=== PATIENT | female | born 1940 | race Caucasian/White ===

== ENCOUNTER 2016-08-16 18:15 | Emergency (ER) | payer MEDICARE, BC ==
[2016-08-16 18:24] VITALS: BP 200/86
[2016-08-16] MEDS ORDERED: Sodium Chloride 0.9% 10 ML Syringe FLUSH PRN ×2 (18:36→19:16)
--- NOTE | 2016-08-16 18:47 | EDM.PDOC ---
ED HPI GENERAL MEDICAL PROBLEM - General Chief Complaint: ENT Problem Stated Complaint: Lump in throat Time Seen by Provider: 08/16/16 18:30 Source of Information: Reports: Patient, RN Notes Reviewed History Limitations: Reports: No Limitations - History of Present Illness INITIAL COMMENTS - FREE TEXT/NARRATIVE: 75 year old female presents to the ED today with complaints of a lump in her throat and pain with swallowing. The symptoms came on suddenly around 430 this evening. This is a new problem for her. No previous history. She was not eating or drinking when the symptoms started. She has not eaten since symptom onset. She reports a 3 day history of mild sore throat. No fever, chills, cough, runny nose. She has a history of seasonal allergies. No allergic reaction symptoms including facial swelling, shortness of breath, rash, itching. She denies wheezing or stridor. She has a history of hypothyroidism but denies goiter or nodules that she's aware of. Triage reports that her BP is elevated. The patient reports that her BP is always elevated when she goes to the clinic or hospital. She has taken her evening BP medication. - Related Data Allergies Allergy/AdvReac Type Severity Reaction Status Date / Time No Known Allergies Allergy Verified 08/16/16 18:24 Home Meds: Home Meds Bioflav,Lemon/Vit BComp&C [Lipo-Flavonoid Plus Caplet] 1 tab PO DAILY 09/15/15 [ History] Calcium With Vitamin D. 1 tab PO BID 09/15/15 [History] Fexofenadine [Ashley] 180 mg PO DAILY PRN 09/15/15 [History] Gabapentin [Neurontin] 100 mg PO TID 09/15/15 [History] Gemfibrozil 600 mg PO BID 09/15/15 [History] Levothyroxine [Synthroid] 100 mcg PO ACBREAKFAST 09/15/15 [History] Metoprolol Tartrate [Lopressor] 50 mg PO BID 09/15/15 [History] Nabumetone. 500 mg PO DAILY 09/15/15 [History] Omeprazole Magnesium [Prilosec Otc] 20 mg PO DAILY 09/15/15 [History] Potassium Chloride [Klor-Con 10] 10 meq PO BID 09/15/15 [History] Acetaminophen 500 mg PO Q6H PRN 08/16/16 [History] Allopurinol [Zyloprim] 200 mg PO DAILY 08/16/16 [History] Losartan [Cozaar] 100 mg PO DAILY 08/16/16 [History] Multivitamin [Multiple Vitamins] 1 tab PO DAILY 08/16/16 [History] Oxymetazoline [Afrin Original 0.05% Nasal [place]] 1 - 2 spray CHERYLE BID PRN [History] amLODIPine [Norvasc] 5 mg PO DAILY 08/16/16 [History] atorvaSTATin [Lipitor] 20 mg PO DAILY 08/16/16 [History] Past Medical History Cardiovascular History: Reports: High Cholesterol, Hypertension Endocrine/Metabolic History: Reports: Hypothyroidism - Past Surgical History GI Surgical History: Reports: Appendectomy, Cholecystectomy Female Surgical History: Reports: Hysterectomy Social & Family History - Tobacco Use Smoking Status *Q: Never Smoker Second Hand Smoke Exposure: No - Caffeine Use Caffeine Use: Reports: Coffee - Recreational Drug Use Recreational Drug Use: No ED ROS ENT - Review of Systems Review Of Systems: See Below Constitutional: Reports: No Symptoms. Denies: Fever, Chills HEENT: Reports: Throat Pain, Other (lump in throat) Respiratory: Reports: No Symptoms. Denies: Shortness of Breath, Wheezing, Cough Cardiovascular: Reports: No Symptoms GI/Abdominal: Reports: Difficulty Swallowing. Denies: Abdominal Pain, Nausea, Vomiting ED EXAM, ENT - Physical Exam Exam: See Below Exam Limited By: No Limitations General Appearance: Alert, WD/WN, No Apparent Distress, Anxious Mouth/Throat: Normal Inspection, Normal Lips, Normal Oropharynx, Throat Pain. No: Drooling, Hoarse Voice, Lip Swelling, Muffled Voice, Oral Ulcers, Peritonsillar Mass, Pharyngeal Erythema, Throat Swelling, Tongue Swelling, Tonsillar Erythema, Tonsillar Exudates, Tonsillar Swelling, Trismus, Uvular Deviation Head: Atraumatic, Normocephalic Neck: Normal Inspection, Supple, Non-Tender, Full Range of Motion. No: Lymphadenopathy (L), Lymphadenopathy (R), Thyromegaly Respiratory/Chest: No Respiratory Distress, Lungs Clear, Normal Breath Sounds, No Accessory Muscle Use, Chest Non-Tender. No: Wheezing, Stridor Cardiovascular: Regular Rate, Rhythm, No Murmur GI/Abdominal: Normal Bowel Sounds, Soft, Non-Tender Neurological: Alert, Oriented, Normal Cognition Skin: Warm, Dry, Intact, Normal Color, No Rash Course - Vital Signs Last Recorded V/S: Last Vital Signs Temp 98.1 F 08/16/16 18:20 Pulse 82 08/16/16 18:20 Resp 18 08/16/16 18:20 BP 200/86 H 08/16/16 18:20 Pulse Ox 96 08/16/16 18:20 - Orders/Labs/Meds Orders: Active Orders 24 hr Category Date Time Status Peripheral IV Care [RC] . DIRECTED Care 08/16/16 18:38 Active Soft Tissue Neck w Cont [CT] Stat Exams 08/16/16 18:36 Taken Peripheral IV Insertion Adult [OM.PC] Stat Oth 08/16/16 18:36 Ordered Labs: Laboratory Tests 08/16/16 08/16/16 Range/Units 18:46 18:46 WBC 4.99 (3.98-10.04) K/mm3 RBC 4.29 (3.98-5.22) M/mm3 Hgb 13.7 (11.2-15.7) gm/L Hct 39.4 (34.1-44.9) % MCV 91.8 (79.4-94.8) fl MCH 31.9 (25.6-32.2) pg MCHC 34.8 (32.2-35.5) g/dl RDW Std Deviation 43.0 (36.4-46.3) fL Plt Count 241 (182-369) K/mm3 MPV 9.8 (9.4-12.3) fl Neut % (Auto) 59.2 (34.0-71.1) % Lymph % (Auto) 24.0 (19.3-51.7) % [place] % (Auto) 10.4 (4.7-12.5) % Eos % (Auto) 5.4 (0.7-5.8) Baso % (Auto) 0.8 (0.1-1.2) % Neut # (Auto) 2.95 (1.56-6.13) K/mm3 Lymph # (Auto) 1.20 (1.18-3.74) K/mm3 [place] # (Auto) 0.52 H (0.24-0.36) K/mm3 Eos # (Auto) 0.27 (0.04-0.36) K/mm3 Baso # (Auto) 0.04 (0.01-0.08) K/mm3 Sodium 144 (136-145) mEq/L Potassium 4.4 (3.5-5.1) mEq/L Chloride 109 H (98-107) mEq/L Carbon Dioxide 24 (21-32) mEq/L Anion Gap 15.4 H (5-15) BUN 23 H (7-18) mg/dL Creatinine 1.1 H (0.55-1.02) mg/dL Est Cr Clr Drug Dosing 32.83 mL/min Estimated GFR (MDRD) 48 (>60) mL/min BUN/Creatinine Ratio 20.9 H (14-18) Glucose 168 H (83-115) mg/dL Calcium 9.0 (8.5-10.1) mg/dL Total Bilirubin 0.7 (0.2-1.0) mg/dL AST 21 (15-37) U/L ALT 27 (14-59) U/L Alkaline Phosphatase 70 (46-116) U/L C-Reactive Protein < 0.2 (<1.0) mg/dL Total Protein 7.5 (6.4-8.2) g/dl Albumin 4.0 (3.4-5.0) g/dl Globulin 3.5 gm/dL Albumin/Globulin Ratio 1.1 (1-2) Meds: Medications Discontinued Medications Generic Name Dose Route Start Last Admin Trade Name Freq PRN Reason Stop Dose Admin Iopamidol 100 ml 08/16/16 19:16 08/16/16 19:43 Isovue-300 (61%) IVPUSH 08/16/16 19:17 80 ml ONETIME ONE Administration Sodium Chloride 10 ml 08/16/16 18:36 08/16/16 18:46 Saline Flush FLUSH 10 ml ASDIRECTED PRN Administration Keep Vein Open Sodium Chloride 10 ml 08/16/16 19:16 08/16/16 19:45 Saline Flush FLUSH 10 ml ONETIME PRN Administration IV FLUSH - Re-Assessments/Exams Free Text/Narrative Re-Assessment/Exam: CBC and CRP are normal. CMP reveals anion gap of 15.4, BUN 23, creatinine 1.1, glucose 168. Potassium and sodium are WNL. BP improved to 160 systolic. She was instructed to monitor her BP at home and return of her BP does not normalize. She says this always happens when she presents to the clinic or hospital. She has no end organ damage symptoms by history. CT soft tissue neck is negative for acute abnormality. No cyst or solid mass. No lymphadenopathy. Patient was able to eat jello without any difficulty. She has no additional symptoms to indicate anaphylaxis. No new medications. Will discharge home. She was instructed to return with any new or worsening symptoms. She is to f/u with her PCP next week for recheck. Departure - Departure Time of Disposition: 20:41 Disposition: Home, Self-Care 01 Condition: Good Clinical Impression: Lump in throat Hypertension Qualifiers: Hypertension type: essential hypertension Qualified Code(s): I10 - Essential ( primary) hypertension - Discharge Information Instructions: Hypertension Referrals: Rg Hernandez MD [Primary Care Provider] - Forms: ED Department Discharge Additional Instructions: Soft foods Tylenol or Ibuprofen as needed for pain Return to ER with any new or worsening symptoms Followup with your primary care provider next week - My Orders Last 24 Hours: My Active Orders 08/16/16 18:36 Soft Tissue Neck w Cont [CT] Stat Peripheral IV Insertion Adult [OM.PC] Stat 08/16/16 18:38 Peripheral IV Care [RC] . DIRECTED - Assessment/Plan Last 24 Hours: My Active Orders 08/16/16 18:36 Soft Tissue Neck w Cont [CT] Stat Peripheral IV Insertion Adult [OM.PC] Stat 08/16/16 18:38 Peripheral IV Care [RC] . DIRECTED
[2016-08-16] MEDS ORDERED: Iopamidol 612 MG/ML 100 ML Bottle IVPUSH ONE (19:16)
--- NOTE | 2016-08-18 17:53 | CT ---
Soft tissue neck Technique: Multiple axial sections through the neck were obtained. Intravenous contrast was utilized. Findings: Parotid salivary glands and submandibular salivary glands are within normal limits. Visualized lung apices are clear. Small normal-appearing lymph nodes are seen. No lymphadenopathy is identified. No parapharyngeal soft tissue swelling or mass is seen. Prevertebral soft tissues are normal. Epiglottis is normal. Bone window settings were reviewed which show mild degenerative change within the cervical spine most prominent at C6-C7 with severe disc space narrowing. Several small rounded soft tissue densities are seen inferiorly within both maxillary sinuses compatible with incidental retention cysts. Impression: 1. Incidental sinus findings. 2. Mild degenerative change within the cervical spine. 3. No additional abnormality is identified on CT study of the neck. Diagnostic code #2 I agree with preliminary report issued by [employer] ([employer] preliminary report dictated on 08/16/16, 9:20 PM Central Time)
== END 2016-08-16 20:50 | disposition home or self-care (01) ==
LOC: JD.ED 18:15
DX: R22.1 Localized swelling, mass and lump, neck (principal); I10 Essential (primary) hypertension; E78.00 Pure hypercholesterolemia, unspecified; E03.9 Hypothyroidism, unspecified; Z90.49 Acquired absence of other specified parts of digestive tract; Z90.710 Acquired absence of both cervix and uterus; Z79.899 Other long term (current) drug therapy
CPT/HCPCS: 36415; 70491; 80053; 85025; 86140; 99284; J7050; Q9967

== ENCOUNTER 2016-11-06 12:20 | Emergency (ER) | payer MEDICARE, BC ==
[2016-11-06 12:37] VITALS: BP 170/87
--- NOTE | 2016-11-06 13:33 | EDM.PDOC ---
ED HPI GENERAL MEDICAL PROBLEM - General Chief Complaint: Lower Extremity Injury/Pain Stated Complaint: RIGHT KNEE INJURY Time Seen by Provider: 11/06/16 12:42 Source of Information: Reports: Patient, RN Notes Reviewed - History of Present Illness INITIAL COMMENTS - FREE TEXT/NARRATIVE: 75-year-old female comes in with right knee discomfort. She had onset of discomfort yesterday of the right knee. has involved primarily the medial aspect and also posterior aspect of the knee. For a while there was a "charley horse" sensation posterior aspect of the knee. Pain is worse with standing and walking. Does feel better to rest and lay down. She has had some arthritic problems with the knee in the past. He states she may have twisted or strained the knee, not sure about that. She did not fall. She is not having leg pain or swelling. Right Knee Pain Score (Numeric/FACES): 10 - Related Data Allergies Allergy/AdvReac Type Severity Reaction Status Date / Time No Known Allergies Allergy Verified 11/06/16 12:37 Home Meds: Home Meds Bioflav,Lemon/Vit BComp&C [Lipo-Flavonoid Plus Caplet] 1 tab PO DAILY 09/15/15 [ History] Calcium With Vitamin D. 1 tab PO BID 09/15/15 [History] Fexofenadine [Ashley] 180 mg PO DAILY PRN 09/15/15 [History] Gabapentin [Neurontin] 100 mg PO TID 09/15/15 [History] Gemfibrozil 600 mg PO BID 09/15/15 [History] Levothyroxine [Synthroid] 100 mcg PO ACBREAKFAST 09/15/15 [History] Metoprolol Tartrate [Lopressor] 50 mg PO BID 09/15/15 [History] Nabumetone. 500 mg PO DAILY 09/15/15 [History] Omeprazole Magnesium [Prilosec Otc] 20 mg PO DAILY 09/15/15 [History] Potassium Chloride [Klor-Con 10] 10 meq PO BID 09/15/15 [History] Acetaminophen 500 mg PO Q6H PRN 08/16/16 [History] Allopurinol [Zyloprim] 200 mg PO DAILY 08/16/16 [History] Losartan [Cozaar] 100 mg PO DAILY 08/16/16 [History] Multivitamin [Multiple Vitamins] 1 tab PO DAILY 08/16/16 [History] Oxymetazoline [Afrin Original 0.05% Nasal [place]] 1 - 2 spray CHERYLE BID PRN [History] amLODIPine [Norvasc] 5 mg PO DAILY 08/16/16 [History] atorvaSTATin [Lipitor] 20 mg PO DAILY 08/16/16 [History] Past Medical History HEENT History: Reports: Cataract Cardiovascular History: Reports: High Cholesterol, Hypertension Gastrointestinal History: Reports: None Genitourinary History: Reports: None Musculoskeletal History: Reports: Arthritis Endocrine/Metabolic History: Reports: Hypothyroidism, Obesity/BMI 30+ - Past Surgical History HEENT Surgical History: Reports: Cataract Surgery GI Surgical History: Reports: Appendectomy, Cholecystectomy Female Surgical History: Reports: Hysterectomy Musculoskeletal Surgical History: Reports: None Social & Family History - Family History Family Medical History: Noncontributory - Tobacco Use Smoking Status *Q: Never Smoker Second Hand Smoke Exposure: No - Caffeine Use Caffeine Use: Reports: Coffee - Recreational Drug Use Recreational Drug Use: No Review of Systems - Review of Systems Review Of Systems: See Below Eyes: Reports: No Symptoms Mouth/Throat: Reports: No Symptoms Respiratory: Denies: Shortness of Breath, Pleuritic Chest Pain Cardiovascular: Denies: Chest Pain GI/Abdominal: Denies: Abdominal Pain, Nausea, Vomiting Musculoskeletal: Reports: Joint Pain Skin: Reports: No Symptoms (Right knee) Neurological: Reports: No Symptoms ED EXAM, GENERAL - Physical Exam Exam: See Below General Appearance: Alert, No Apparent Distress Throat/Mouth: Normal Inspection, Normal Oropharynx Respiratory/Chest: No Respiratory Distress, Lungs Clear, Normal Breath Sounds Cardiovascular: Regular Rate, Rhythm Extremities: Other (There is some swelling of the right knee, no effusion at this time, there is some tenderness of the medial aspect and also very mild tenderness of the posterior aspect. No warmth or erythema she has good range of motion with minimal discomfort. Knee joint is stable). No: Pedal Edema, Leg Pain (Leg is nontender), Increased Warmth, Redness Neurological: Alert, Oriented, No Motor/Sensory Deficits Course - Vital Signs Last Recorded V/S: Last Vital Signs Temp 98.0 F 11/06/16 12:33 Pulse 71 11/06/16 12:33 Resp 16 11/06/16 12:33 BP 170/87 H 11/06/16 12:33 Pulse Ox 95 11/06/16 12:33 - Orders/Labs/Meds Orders: Active Orders 24 hr Category Date Time Status Knee Min 4V Rt [CR] Stat Exams 11/06/16 13:02 Taken - Re-Assessments/Exams Free Text/Narrative Re-Assessment/Exam: 11/06/16 14:14 X-rays of the knee do show degenerative changes, no fracture Departure - Departure Time of Disposition: 13:33 Disposition: Refer to Observation Condition: Fair Clinical Impression: Knee pain, right Qualifiers: Chronicity: unspecified Qualified Code(s): M25.561 - Pain in right knee - Discharge Information Instructions: Knee Pain Referrals: Rg Hernandez MD [Primary Care Provider] - Forms: ED Department Discharge Additional Instructions: [place] wrap right knee, rest and elevate leg and knee as much as possible, Advil or ibuprofen 400 mg 3 times daily with food for pain and inflammation, you may take Tylenol in between doses of ibuprofen if needed for extra pain relief, symptoms should gradually get better over the next 3-5 days follow-up with Dr. Vasquez or Dr. Hicks, Orthopedists if not much better within 5-7 days as expected. Follow-up with your regular medical provider as needed, return to ED if symptoms worsening in any way. - My Orders Last 24 Hours: My Active Orders 11/06/16 13:02 Knee Min 4V Rt [CR] Stat - Assessment/Plan Last 24 Hours: My Active Orders 11/06/16 13:02 Knee Min 4V Rt [CR] Stat
--- NOTE | 2016-11-06 14:16 | CR ---
Right knee: Four views of the right knee were obtained. Comparison: No previous study. Small joint effusion is seen. Lateral joint space narrowing is noted with lateral osteophytes. Spurring is noted off the intercondylar spines. Spurring also seen within the patellofemoral joint. Incidental spur at the attachment of the quadriceps tendon to the patella seen. Patellar tendon shows minimal calcifications which is incidental. No acute bony abnormality is identified. Impression: 1. Small joint effusion. Degenerative change as noted above. 2. No acute bony abnormality is identified. Diagnostic code #2
== END 2016-11-06 13:50 | disposition home or self-care (01) ==
LOC: JD.ED 12:20
DX: M25.561 Pain in right knee (principal); I10 Essential (primary) hypertension; E78.00 Pure hypercholesterolemia, unspecified; M19.90 Unspecified osteoarthritis, unspecified site; E03.9 Hypothyroidism, unspecified; E66.9 Obesity, unspecified; Z98.49 Cataract extraction status, unspecified eye; Z90.49 Acquired absence of other specified parts of digestive tract; Z90.710 Acquired absence of both cervix and uterus; Z79.899 Other long term (current) drug therapy; Z68.35 Body mass index [BMI] 35.0-35.9, adult
CPT/HCPCS: 73564-26-RT; 73564-RT; 99283

== ENCOUNTER 2023-01-02 17:30 | Emergency (ER) | payer MEDICARE, BC ==
[2023-01-02] MEDS ORDERED: Sodium Chloride 0.9% 10 ML Syringe FLUSH PRN (17:46)
[2023-01-02] MEDS ORDERED: Aspirin 81 MG Tab.Chew PO ONE (17:46)
[2023-01-02] MEDS ORDERED: Alum Hydrox/Mag Hydrox/Simeth 30 ML, Lidocaine 2% 15 ML PO ONE ×2 (18:06)
[2023-01-02] MEDS ORDERED: Lactated Ringers 1,000 ML IV SCH (18:15)
[2023-01-02 18:51] LABS: BASOPHILS PERCENT AUTO 0.1 % (0.0-1.0); HEMATOCRIT 41.6 % (37.0-47.0); HEMOGLOBIN 14.5 gm/dl (12.0-16.0); IMMATURE GRAN ABSOLUTE AUTO 0.02 K/mm3 (0.00-0.05); IMMATURE GRAN PERCENT AUTO 0.3 % (0.0-0.4); LYMPHOCYTES ABSOLUTE AUTO 0.5 K/mm3 (1.0-4.8); LYMPHOCYTES PERCENT AUTO 6.6 % (24.0-44.0); MEAN CORPUSCULAR HEMOGLOBIN 32.7 pg (28.0-32.0); MEAN CORPUSCULAR HGB CONC 34.9 g/dl (32.0-36.0); MEAN CORPUSCULAR VOLUME 93.7 fl (83.0-99.0); MEAN PLATELET VOLUME 9.9 fl (9.4-12.3); MONOCYTES ABSOLUTE AUTO 0.2 K/mm3 (0.0-0.8); MONOCYTES PERCENT AUTO 2.5 % (0.0-8.0); NEUTROPHILS ABSOLUTE AUTO 6.8 K/mm3 (1.8-7.7); NEUTROPHILS PERCENT AUTO 90.5 % (41.0-71.0); PLATELET COUNT,PLT 180 K/mm3 (150-400); RED BLOOD CELL COUNT 4.44 M/mm3 (4.10-5.30); WHITE BLOOD CELL COUNT,WBC 7.48 K/mm3 (3.9-11.3)
[2023-01-02 19:19] LABS: ALBUMIN 3.8 g/dl (3.4-5.0); ANION GAP 16.1 (5-15); BILIRUBIN TOTAL 0.7 mg/dL (0.2-1.0); EST CRCL DRUG DOSING (CG) 33.71 mL/min; INR 0.97; MAGNESIUM 1.5 mg/dL (1.8-2.4); POTASSIUM,K 4.1 mEq/L (3.5-5.1); PROTEIN TOTAL,TP 7.5 g/dl (6.4-8.2); PROTHROMBIN TIME 10.4 SECONDS (9.7-12.0)
[2023-01-02 19:37] LABS: D-DIMER QUANTITATIVE 1.64 mg/L (0.19-0.50)
[2023-01-02 19:49] LABS: CORONAVIRUS COVID-19 NAA NEGATIVE (NEGATIVE); INFLUENZA A NAA NEGATIVE (NEGATIVE)
[2023-01-02] MEDS ORDERED: Sodium Chloride 0.9% 10 ML Syringe FLUSH ONE (20:01)
[2023-01-02] MEDS ORDERED: Iopamidol 755 Mg/ML 100 ML Bottle IVPUSH ONE (20:01)
[2023-01-02] MEDS ORDERED: Sodium Chloride 0.9% 100 ML IV SCH (20:15)
[2023-01-02 20:38] LABS: C-REACTIVE PROTEIN <0.2 mg/dL (<1.0)
[2023-01-02] MEDS ORDERED: Magnesium Oxide 400 MG Tab PO ONE ×2 (21:18→21:23)
[2023-01-02 21:46] LABS: LIPASE 21231 U/L (16-77)
[2023-01-02] MEDS ORDERED: HYDROmorphone 0.5 MG/0.5 ML Syringe IVPUSH ONE (22:06)
[2023-01-02] MEDS ORDERED: Naloxone 0.4 MG/ML SDV IVPUSH PRN (22:06)
[2023-01-03 00:49] VITALS: BP 124/72; PULSE 70
== END 2023-01-02 23:17 | disposition home or self-care (01) ==
LOC: JD.ED 17:30
DX: K85.90 Acute pancreatitis without necrosis or infection, unspecified (principal); I10 Essential (primary) hypertension; E78.00 Pure hypercholesterolemia, unspecified; E03.9 Hypothyroidism, unspecified; E66.9 Obesity, unspecified; Z79.899 Other long term (current) drug therapy; Z20.822 Contact with and (suspected) exposure to COVID-19
CPT/HCPCS: 0240U; 36415; 71045; 71275; 74177; 80053; 83690; 83735; 84484; 85025; 85379; 85610; 86140; 93005; 96361; 96374; 99285; A9270; J1170; J3490; J7120; Q9967